=== PATIENT | male | born 1940 | race Caucasian/White ===

== ENCOUNTER 2017-12-19 08:46 | Outpatient (CLI) | payer MEDICARE ==
--- NOTE | 2017-12-19 11:04 | ULT ---
ULTRASOUND RENAL BILATERAL STANDARD: Date: 12/19/17 HISTORY: Mass. COMPARISON: CT from 2017. FINDINGS: Right kidney measures 10.8 x 6.3 x 5.8 cm. Left kidney measures 10.3 x 5.2 x 5.5 cm. There is a 1.7 c m cyst in the left kidney superior pole. No right-sided mass or cyst is appreciated. Urinary bladder is unremarkable, besides not being filled with urine. IMPRESSION: 1. Left-sided renal cyst. 2. Nonvisualization of previously described right-sided renal hypodensity. This may be resolution of cyst versus nonvisualization due to technique. Follow up can be obtained. POS: [facility]
== END 2017-12-19 08:47 | disposition home or self-care (01) ==
LOC: MADRAD 08:46
PROVIDERS: ATTEND Internal Medicine Nephrology
DX: N28.1 Cyst of kidney, acquired (principal)
CPT/HCPCS: 76770